=== PATIENT | female | born 1960 | race Caucasian/White ===

== ENCOUNTER 2019-04-04 12:58 | Emergency (ER) | payer OTHER ==
[2019-04-04 13:51] VITALS: BP 109/56
[2019-04-04 14:10] LABS: Influenza A Molecular NEGATIVE (Negative); Influenza B Molecular NEGATIVE (Negative)
--- NOTE | 2019-04-04 14:21 | UC ---
FLU HPI - HPI Summary HPI Summary: 58-year-old female who started experiencing flulike symptoms 2 nights ago. Today she states that she has generalized body aches which are worse than normal. She normally has chronic body pain for which she takes gabapentin. She recently moved to the area. - History of Current Complaint Chief Complaint: UCGeneralIllness Stated Complaint: FLU LIKE SYMPTOMS Time Seen by Provider: 04/04/19 13:43 Hx Obtained From: Patient ?: No Onset/Duration: Gradual Onset Severity Currently: Moderate Severity Initially: Moderate Pain Intensity: 9 Associated Signs & Symptoms: Positive: Fever, Myalgia, Cough - Nonproductive cough, Headache - Mild headache Related Hx: Possible Flu/Infectious Exposure - Allergy/Home Medications Allergies/Adverse Reactions: Allergies Allergy/AdvReac Type Severity Reaction Status Date / Time aspirin Allergy See Comment Verified 04/04/19 13:40 Penicillins Allergy Unknown Verified 04/04/19 13:40 Reaction Details Sulfa (Sulfonamide Allergy Rash Verified 04/04/19 13:40 Antibiotics) Home Medications: Home Medications ALPRAZolam [Alprazolam Odt] 0.25 mg PO DAILY PRN 04/04/19 [History Confirmed ] Acetaminophen [Tylenol Extra Strength] 1 tab PO ONCE 04/04/19 [History Confirmed 04/04/19] Atenolol TAB* [Tenormin TAB* 50 MG] 50 mg PO DAILY 04/04/19 [History Confirmed 04/04/19] Gabapentin CAP(*) [Neurontin 100 mg CAP(*)] 1 cap PO DAILY 04/04/19 [History Confirmed 04/04/19] Hydrocodone/Acetaminophen [Hydrocodone-Acetamin 5-325 mg] 0.5 tab PO BID [History Confirmed 04/04/19] Ibuprofen TAB* [Motrin TAB* 800 MG] 1 tab PO ONCE 04/04/19 [History Confirmed ] PARoxetine HCL TAB* [Paxil TAB*] 40 mg PO DAILY 04/04/19 [History Confirmed ] metFORMIN* [Glucophage 1000 MG TAB *] 1 tab PO DAILY 04/04/19 [History Confirmed 04/04/19] traZODone TAB* [Desyrel TAB*] 100 mg PO BEDTIME 04/04/19 [History Confirmed ] PMH/Surg Hx/FS Hx/Imm Hx Previously Healthy: Yes Cardiovascular History: Other - Tachycardia GI/ History: Gall Bladder Disease Neurological History: Other - Chronic body pain. - Surgical History Surgical History: Yes Surgery Procedure, Year, and Place: both hands. R elbow. R shoulder. appendectomy 1986. L oophrectomy r/t tumor. tubal ligation 1992 - Family History Known Family History: Positive: Non-Contributory - Social History Occupation: Employed Full-time Alcohol Use: None Substance Use Type: None Smoking Status (MU): Heavy Every Day Tobacco Smoker Amount Used/How Often: 1 ppd Review of Systems All Other Systems Reviewed And Are Negative: Yes Constitutional: Positive: Fever, Chills ENT: Positive: Sore Throat - Scratchy throat, Nasal Discharge Respiratory: Positive: Cough - Dry nonproductive cough Musculoskeletal: Positive: Myalgia Neurological: Positive: Headache - Mild headache Is Patient Immunocompromised?: No Physical Exam Triage Information Reviewed: Yes Appearance: Well-Appearing, No Pain Distress, Well-Nourished Vital Signs: Initial Vital Signs Temp 98 F 04/04/19 13:44 Pulse 82 04/04/19 13:44 Resp 16 04/04/19 13:44 BP 109/56 04/04/19 13:44 Pulse Ox 100 04/04/19 13:44 Vital Signs Reviewed: Yes Eyes: Positive: Conjunctiva Clear ENT: Positive: Hearing grossly normal, Pharynx normal, TMs normal, Uvula midline Neck exam: Normal Neck: Positive: Supple, Nontender, No Lymphadenopathy Respiratory: Positive: Lungs clear, Normal breath sounds, No respiratory distress, No accessory muscle use Cardiovascular: Positive: RRR, No Murmur, Pulses Normal, Brisk Capillary Refill Musculoskeletal Exam: Normal Neurological Exam: Normal Psychological Exam: Normal Skin Exam: Normal Flu Course/Dx - Course Course Of Treatment: Rapid flu test: Negative The patient is nontoxic and does not appear ill. - Differential Dx/Diagnosis Provider Diagnosis: Flu-like symptoms Discharge ED - Sign-Out/Discharge Documenting (check all that apply): Patient Departure All imaging exams completed and their final reports reviewed: No Studies - Discharge Plan Condition: Fair Disposition: HOME Patient Education Materials: Viral Syndrome (ED) Forms: *Work Release Referrals: [facility] [Outside] No Primary Care Phys,NOPCP [Primary Care Provider] - Additional Instructions: Go home and rest, Tylenol every 4 hours and may alternate with Motrin every 8 hours with food. Follow up at [facility] if no improvement by Tuesday and go to the ER if any worsening symptoms coming into the . - Billing Disposition and Condition Condition: FAIR Disposition: Home - Attestation Statements Provider Attestation: The above named person should be excused from work today, 04/04/2018
== END 2019-04-04 14:28 | disposition home or self-care (01) ==
LOC: UCCORT 12:58
DX: G89.29 Other chronic pain (principal); M79.10 Myalgia, unspecified site; R50.9 Fever, unspecified; J02.9 Acute pharyngitis, unspecified; J34.89 Other specified disorders of nose and nasal sinuses; R05 Cough; R51 Headache; F17.210 Nicotine dependence, cigarettes, uncomplicated; Z88.6 Allergy status to analgesic agent; Z88.0 Allergy status to penicillin; Z88.2 Allergy status to sulfonamides
CPT/HCPCS: 99201; G0463

== ENCOUNTER 2023-06-04 16:05 | Observation (INO) ==
[2023-06-04] MEDS ORDERED: Dextrose 50% Syringe 50 ml 25 GM/50 ML SYRINGE IV PUSH PRN (17:52)
[2023-06-04] MEDS ORDERED: Nitroglycerin 0.3 mg TAB SL PRN (17:54)
[2023-06-04] MEDS: Enoxaparin 40 MG/0.4 ML SYR SUBCUT SCH (18:18)
[2023-06-04] MEDS: Nicotine PATCH 21 MG/24 HR PATCH TRANSDERM SCH (18:20)
[2023-06-04] MEDS: Cholecalciferol (VIT D3) 1,000 unit TAB PO SCH (20:19)
[2023-06-04] MEDS: Meloxicam 7.5 mg TAB (NF) PO SCH (22:13)
[2023-06-05 06:53] LABS: ABS Basophils 0.1 10^3/uL (0.0-0.1); ABS Eosinophils 0.3 10^3/uL (0.0-0.5); ABS Lymphocytes 4.3 10^3/uL (1.0-4.8); ABS Monocytes 0.6 10^3/uL (0.0-0.9); ABS Neutrophils 4.7 10^3/uL (1.5-7.6); Calcium 8.9 mg/dL (8.6-10.3); Creatinine, Serum 0.68 mg/dL (0.51-0.95); Eosinophil % 2.8 %; Hemoglobin 13.5 g/dL (11.5-14.3); Lymphocyte % 43.3 %; Magnesium 2.1 mg/dL (1.9-2.7); Mean Corpuscular Hemoglobin 29.3 pg (27-33); Mean Corpuscular Hgb Conc 33.6 g/dL (31-36); Mean Corpuscular Volume 87.1 fL (80-97); Mean Platelet Volume 7.3 fL (7.5-11.2); Platelet Count 347 10^3/uL (150-450); Potassium 4.4 mmol/L (3.5-5.0); Red Blood Count 4.59 10^6/uL (3.63-4.92); Red Cell Distribution Width 14.1 % (12-17); eGFR CKD-EPI 97.2 (>60)
[2023-06-06] MEDS ORDERED: Regadenoson 0.4 MG/5 ML SYRINGE ONE (07:13)
[2023-06-06] MEDS ORDERED: Aminophylline 25 MG/ML VIAL ONE (07:13)
[2023-06-06 13:44] VITALS: BP 120/58
== END 2023-06-06 14:30 | disposition short-term general hospital (02) ==
LOC: ED 16:05 → INTOOBSV 16:44 → SUATTDRO 16:44 → EDHOLD 16:44 → MEDTELE 19:43
PROVIDERS: ADMIT Hospitalist; ATTEND Student in an Organized Health Care Education/Training Program